=== PATIENT | male | born 1950 | race African-American/Black ===

== ENCOUNTER 2017-01-11 18:59 | Emergency (ER) | payer OTHER ==
[~2017-01-11] VITALS: Ht 190.5 cm; Wt 93.8 kg
[2017-01-11 19:03] VITALS: BP 19/68
== END 2017-01-11 21:07 | disposition home or self-care (01) ==
LOC: EME 18:59
DX: S50.02XA Contusion of left elbow, initial encounter (principal); S60.222A Contusion of left hand, initial encounter; Y00.XXXA Assault by blunt object, initial encounter; Y07.9 Unspecified perpetrator of maltreatment and neglect
CPT/HCPCS: 73080; 73130; 99281; 99284

== ENCOUNTER 2017-04-13 14:29 | Emergency (ER) | payer OTHER ==
[~2017-04-13] VITALS: Ht 190.5 cm; Wt 95.3 kg
[2017-04-13] MEDS ORDERED: VIBRAMYCIN100 MG PO (16:13)
[2017-04-13] MEDS ORDERED: MOTRIN800 MG PO (16:13)
[2017-04-13 17:19] VITALS: BP 131/78
== END 2017-04-13 17:18 | disposition home or self-care (01) ==
LOC: EME 14:29
PROC: 0H9DXZZ Drainage of Right Lower Arm Skin, External Approach (ICD-10-PCS; principal; 2017-04-13)
DX: L02.413 Cutaneous abscess of right upper limb (principal); Z89.511 Acquired absence of right leg below knee
CPT/HCPCS: 99281; 99284

== ENCOUNTER 2017-07-10 12:45 | Inpatient (IN) | payer OTHER ==
[~2017-07-10] VITALS: Ht 190.5 cm; Wt 87.2 kg
[~2017-07-10 12:45] MED LIST: MOTRIN800 MG PO; VIBRAMYCIN100 MG PO
[2017-07-10 14:19] LABS: HEMATOCRIT 42.9 % (38.0-50.0); HEMOGLOBIN 15.2 G/DL (12.5-16.6); MCH 30.5 PG (29.0-34.0); MCHC 35.4 G/DL (30.0-36.0); MCV 86.1 FL (86-99); PLATELET COUNT 129 K/uL (156-360); RBC DIS.WIDTH-CV 11.8 % (11.8-14.6); RED BLOOD COUNT 4.98 M/uL (4.00-5.50); WHITE BLOOD COUNT 3.8 K/uL (4.1-10.2)
[2017-07-10 14:28] LABS: ALBUMIN 3.9 g/dL (3.2-4.8); CHLORIDE 105 mEq/L (99-109); POTASSIUM 3.6 mEq/L (3.7-5.4); SODIUM 142 mEq/L (136-147)
[2017-07-10 14:31] LABS: GLUCOSE 97 mg/dL (70-99); TOTAL PROTEIN 8.1 g/dL (6.4-8.3)
[2017-07-10 14:33] LABS: TOTAL BILIRUBIN 0.5 mg/dL (0.0-1.0)
[2017-07-10 14:34] LABS: ALKALINE PHOSPHATASE 81 IU/L (3-129); CREATININE 0.7 mg/dL (0.6-1.3); GFR ESTIMATE (CALCULATED) > 59 mL/min/ (58.99-99999)
[2017-07-10 14:35] LABS: UREA NITROGEN (BUN) 8 mg/dL (9-23)
[2017-07-10 14:36] LABS: AST (GOT) 48 IU/L (2-34)
[2017-07-10 14:37] LABS: ALT (GPT) 61 IU/L (3-49)
[2017-07-10] MEDS ORDERED: ADULT ASPIRIN81 MG PO (15:45)
[2017-07-10] MEDS ORDERED: TYLENOL EXTRA500 MG PO (15:45)
[2017-07-10 17:06] LABS: HDL CHOLESTEROL 38 MG/DL (Desirable>=40); LDL CHOLESTEROL 93 mg/dL (Desirable<100); NON-HDL CHOLESTEROL 113 mg/dL (Desirable<160); TOTAL CHOLESTEROL 151 mg/dL (Desirable<200); TRIGLYCERIDES 99 MG/DL (Normal: <150)
[2017-07-10 17:59] VITALS: BP 148/74
[2017-07-10 19:26] VITALS: BP 120/66
[2017-07-10 21:06] VITALS: BP 134/78
[2017-07-11] VITALS (7 sets, daily range): BP systolic 100–141; BP diastolic 53–87
[2017-07-11 12:16] LABS: HEMOGLOBIN A1c (GLYCOHEMOGLOB) 5.2 % (Below 5.7)
[2017-07-12 04:02] VITALS: BP 137/68
[2017-07-12 07:48] VITALS: BP 129/76
[2017-07-12] MEDS ORDERED: ASPIR-LOW81 MG PO (09:07)
[2017-07-12] MEDS ORDERED: LIPITOR40 MG PO (09:07)
== END 2017-07-12 10:30 | disposition home or self-care (01) | DRG 64 ==
LOC: EME 12:45 → EDOF 15:40 → ENRESERV 15:46 → 4SOUTH 17:57 → 5SOUTH 19:13 → ENRESERV 19:14 → 5SOUTH 20:56
PROVIDERS: Physician Assistant Medical; Student in an Organized Health Care Education/Training Program
PROC: B246ZZZ Ultrasonography of Right and Left Heart (ICD-10-PCS; principal; 2017-07-10)
DX: I63.8 Other cerebral infarction (principal); I63.233 Cerebral infarction due to unspecified occlusion or stenosis of bilateral carotid arteries; I51.7 Cardiomegaly; I70.0 Atherosclerosis of aorta; Z89.511 Acquired absence of right leg below knee; Z86.718 Personal history of other venous thrombosis and embolism; Z79.82 Long term (current) use of aspirin
CPT/HCPCS: 70450; 70551; 80053; 80061; 83036; 85027; 93005; 93306; 93880; 99281; 99285; J1644; J7030

== ENCOUNTER 2017-09-15 20:13 | Emergency (ER) | payer OTHER ==
[~2017-09-15] VITALS: Ht 190.5 cm; Wt 90.4 kg
[~2017-09-15 20:13] MED LIST changes: +ADULT ASPIRIN81 MG PO; +ASPIR-LOW81 MG PO; +LIPITOR40 MG PO; +TYLENOL EXTRA500 MG PO
[2017-09-15 20:20] VITALS: BP 138/78
== END 2017-09-15 23:05 | disposition home or self-care (01) ==
LOC: EME 20:13
DX: R51 Headache (principal); M54.2 Cervicalgia
CPT/HCPCS: 70450; 72125; 99281; 99283